=== PATIENT | female | born 1975 | race Asian ===

== ENCOUNTER 2019-09-29 12:55 | Emergency (ER) | payer OTHER ==
[~2019-09-29] VITALS: Ht 162.6 cm; Wt 90.9 kg
[2019-09-29 13:01] VITALS: BP 136/87
== END 2019-09-29 13:33 | disposition home or self-care (01) ==
LOC: EMS 13:01
DX: J02.9 Acute pharyngitis, unspecified (principal); R09.81 Nasal congestion; Z20.828 Contact with and (suspected) exposure to other viral communicable diseases; Z88.1 Allergy status to other antibiotic agents; Z88.6 Allergy status to analgesic agent
CPT/HCPCS: 99283; U0003

== ENCOUNTER → 2019-11-17 | Outpatient (CLI) | payer OTHER | END | disposition home or self-care (01) | LOC: LABPV 16:58 | PROVIDERS: ATTEND Emergency Medicine | DX: Z20.828 Contact with and (suspected) exposure to other viral communicable diseases (principal) | CPT/HCPCS: 87426; U0003 ==

== ENCOUNTER → 2019-11-21 | Outpatient (CLI) | payer OTHER | END | disposition home or self-care (01) | LOC: LABPV 16:24 | DX: Z20.828 Contact with and (suspected) exposure to other viral communicable diseases (principal) | CPT/HCPCS: U0003-CS ==

== ENCOUNTER → 2022-09-20 | Outpatient (CLI) | payer OTHER ==
[2022-09-21 08:06] LABS: RUBELLA AB IGG-REFLAB 3.57 index (Immune >0.99)
[2022-09-21 09:07] LABS: RUBEOLA (MEASLES) IGG 84.7 AU/mL (Immune >16.4)
== END | disposition home or self-care (01) ==
LOC: LABMN 14:24
PROVIDERS: ATTEND Internal Medicine
DX: Z02.1 Encounter for pre-employment examination (principal)
CPT/HCPCS: 86480; 86706; 86735; 86762; 86765; 86787